=== PATIENT | male | born 1990 | race Caucasian/White ===

== ENCOUNTER 2018-12-19 15:06 | Emergency (ER) | payer BC, OTHER ==
[2018-12-19 15:27] VITALS: BP 127/82
--- NOTE | 2018-12-19 15:37 | UC ---
UC General HPI - HPI Summary HPI Summary: 28-year-old male comes in with a chief complaint of left groin pain. Patient reports that this morning at 10:30 at work he was lifting a box and twisting he had sudden onset of pain in the left groin area. He felt a pop. Pain is worse with any Movements. He has pain in the left testicle also. No complaint of any abdominal pain. - History of Current Complaint Chief Complaint: UCGeneralIllness Stated Complaint: WC - GROIN PAIN Time Seen by Provider: 12/19/18 15:22 Pain Intensity: 3 - Allergy/Home Medications Allergies/Adverse Reactions: Allergies Allergy/AdvReac Type Severity Reaction Status Date / Time No Known Allergies Allergy Verified 12/19/18 15:23 Home Medications: Home Medications NK [No Home Medications Reported] 12/19/18 [History Confirmed 12/19/18] PMH/Surg Hx/FS Hx/Imm Hx Previously Healthy: Yes - Surgical History Surgical History: None - Family History Known Family History: Positive: Non-Contributory - Social History Alcohol Use: Occasionally Substance Use Type: None Smoking Status (MU): Light Every Day Tobacco Smoker Type: eCigarettes Review of Systems All Other Systems Reviewed And Are Negative: Yes Constitutional: Positive: Negative Skin: Positive: Negative Eyes: Positive: Negative ENT: Positive: Negative Respiratory: Positive: Negative Cardiovascular: Positive: Negative Gastrointestinal: Positive: Other - SEE HPI Genitourinary: Negative: Dysuria Motor: Positive: Negative Neurovascular: Positive: Negative Musculoskeletal: Positive: Negative Neurological: Positive: Negative Psychological: Positive: Negative Is Patient Immunocompromised?: No Physical Exam Triage Information Reviewed: Yes Appearance: Well-Appearing, Well-Nourished, Pain Distress - MILD WITH ROM Vital Signs: Initial Vital Signs Temp 98.9 F 12/19/18 15:23 Pulse 92 12/19/18 15:23 Resp 16 12/19/18 15:23 BP 127/82 12/19/18 15:23 Pulse Ox 99 12/19/18 15:23 Vital Signs Reviewed: Yes Eye Exam: Normal Eyes: Positive: Conjunctiva Clear Neck: Positive: Supple Respiratory: Positive: No respiratory distress Abdomen Description: Negative: Distended Bowel Sounds: Positive: Present Male Genital Exam: Positive: Inguinal Tenderness - LEFT, Scrotum Tenderness (L) , Testicular Tenderness (L), Other - LEFT TESTICLE TENDER TO PALPATION, NO SWELLING APPRECIATED ON EXAM Musculoskeletal: Positive: Strength Intact, ROM Intact Neurological Exam: Normal Neurological: Positive: Alert, Muscle Tone Normal Psychological Exam: Normal Psychological: Positive: Age Appropriate Behavior Skin Exam: Normal Course/Dx - Course Course Of Treatment: At the time of the patient's visit we do not have ultrasound. Therefore I recommended further evaluation emergency Department. Patient went there by POV it is discussed the case with Alesha and the [facility] emergency department. - Diagnoses Provider Diagnosis: Left inguinal pain, Testicular/scrotal pain Discharge - Sign-Out/Discharge Documenting (check all that apply): Patient Departure All imaging exams completed and their final reports reviewed: No Studies - Discharge Plan Condition: Stable Disposition: HOME Referrals: [facility] [place] [facility] [Outside] Additional Instructions: GO DIRECTLY TO THE EMERGENCY DEPARTMENT FOR FURTHER EVALUATION. - Billing Disposition and Condition Condition: STABLE Disposition: Home
== END 2018-12-19 15:41 | disposition home or self-care (01) ==
LOC: UCCORT 15:06
DX: R10.32 Left lower quadrant pain (principal); N50.812 Left testicular pain; N50.82 Scrotal pain; F17.290 Nicotine dependence, other tobacco product, uncomplicated
CPT/HCPCS: 99202; G0463